=== PATIENT | female | born 1995 | race Asian ===

== ENCOUNTER 2018-11-27 05:57 | Day surgery (SDC) | payer OTHER ==
[2018-11-22 12:52] VITALS: BP 107/58
[~2018-11-27] VITALS: Ht 162.6 cm; Wt 47.2 kg
[2018-11-27 06:38] VITALS: BP 107/58
[2018-11-27 11:24] VITALS: BP 122/69
== END 2018-11-27 10:25 | disposition home or self-care (01) ==
LOC: DS 05:57 → OR 09:00 → DS 09:00
DX: N72 Inflammatory disease of cervix uteri (principal); F17.210 Nicotine dependence, cigarettes, uncomplicated; Z79.899 Other long term (current) drug therapy
CPT/HCPCS: C1758; J0690; J2250; J2405; J2704; J3010; J7120